=== PATIENT | male | born 1980 | race African-American/Black ===

== ENCOUNTER 2017-09-14 12:38 | Inpatient (IN) | payer SELFPAY ==
[~2017-09-14] VITALS: Ht 185.4 cm; Wt 86.2 kg
[2017-09-14] MEDS ORDERED: SODIUM CHLORIDE 0.9% 1,000 ML IV ONE (14:34)
[2017-09-14] MEDS ORDERED: LEVETIRACETAM 500MG PREMIX 100 ML IV ONE (14:45)
[2017-09-14] MEDS ORDERED: LORAZEPAM 2MG/ML CPJ IV ONE (14:45)
[2017-09-14 15:06] LABS: CLARITY URINE CLEAR (CLEAR); COLOR URINE YELLOW (YELLOW); KETONES URINE 2+ (NEGATIVE); LEUKOCYTE ESTERASE URINE NEGATIVE (NEGATIVE); NITRITE URINE NEGATIVE (NEGATIVE); OCCULT BLOOD URINE 2+ (NEGATIVE); PROTEIN URINE 2+ (NEGATIVE); SPECIFIC GRAVITY URINE 1.015 (1.005-1.030); UROBILINOGEN URINE 0.2 E.U./dL (0.2-1.0)
[2017-09-14 15:12] LABS: HEMATOCRIT. 39.8 % (42.0-52.0); HEMOGLOBIN. 13.8 g/dL (14.0-18.0); MEAN CORPUSCULAR HEMOGLOBIN 32.8 pg (28.0-32.0); MEAN CORPUSCULAR VOLUME 94.8 fL (80.0-94.0); MEAN PLATELET VOLUME 9.1 fl (7.4-10.4); PLATELET 121 x1000/uL (130-400); RED CELL DISTRIBUTION WIDTH 14.4 % (11.6-14.6)
[2017-09-14 15:19] LABS: CHLORIDE 95 mEq/L (98-107)
[2017-09-14 15:20] LABS: AMMONIA 53 uMol/L (<32)
[2017-09-14 15:24] LABS: ETHANOL BLOOD 20 mg/dL
[2017-09-14 15:28] LABS: CREATINE KINASE 261 IU/L (39-308)
[2017-09-14 15:33] LABS: CARBAMAZEPINE < 0.5 ug/mL (4-12); PHENOBARBITAL < 2.1 ug/mL (15.0-40.0); VALPROIC ACID < 3.0 ug/mL (50-100)
[2017-09-14 15:49] LABS: *AMPHETAMINES SCREEN URINE NEGATIVE (NEGATIVE); *BARBITURATES SCREEN URINE NEGATIVE (NEGATIVE); *BENZODIAZEPINES SCREEN URINE NEGATIVE (NEGATIVE); *COCAINE SCREEN URINE NEGATIVE (NEGATIVE)
[2017-09-14 15:50] LABS: CANNABINOID URINE SCREEN NEGATIVE (NEGATIVE); METHADONE URINE SCREEN NEGATIVE (NEGATIVE); OPIATES URINE SCREEN NEGATIVE (NEGATIVE); PHENCYCLIDINE URINE SCREEN NEGATIVE (NEGATIVE)
[2017-09-14 17:11] LABS: PLATELET ESTIMATE SLIGHTLY DECREASED
[2017-09-14] MEDS ORDERED: FOLIC ACID 1 MG, THIAMINE HCL 100 MG, MVI, ADULT NO.1 10 ML in DEXTROSE 5% WATER 1,000 ML IV ONE ×4 (18:00)
[2017-09-14] MEDS ORDERED: DILTIAZEM HCL 30MG TABLET PO ONE (18:00)
[2017-09-14] MEDS ORDERED: ASPIRIN 325MG EC TABLET PO ONE (18:00)
[2017-09-14] MEDS ORDERED: MVI, ADULT NO.1 10 ML, FOLIC ACID 1 MG, THIAMINE HCL 100 MG in SODIUM CHLORIDE 0.9% 1,0... IV SCH ×4 (19:15)
[2017-09-14] MEDS ORDERED: LORAZEPAM 2MG/ML CPJ IV PRN (19:15)
[2017-09-14] MEDS ORDERED: ONDANSETRON HCL 4MG/2ML VIAL IV PRN (19:15)
[2017-09-14] MEDS ORDERED: ACETAMINOPHEN 325MG TABLET PO PRN (19:15)
[2017-09-14] MEDS ORDERED: CLONIDINE 0.1MG TABLET PO PRN (19:15)
[2017-09-14] MEDS ORDERED: DIPHENHYDRAMINE 50MG/ML VIAL IV PRN (19:15)
[2017-09-14 19:43] LABS: PHOSPHORUS 3.6 mg/dL (2.5-4.9)
[2017-09-14 22:30] VITALS: BP 121/75
[2017-09-14] MEDS ORDERED: POTASSIUM CHLORIDE 20MEQ TABLET SR PO NR (22:30)
[2017-09-14] MEDS ORDERED: MAGNESIUM 2 G PREMIX 50 ML IV PRN (22:30)
[2017-09-14] MEDS ORDERED: LEVETIRACETAM 500MG PREMIX 100 ML IV SCH (23:30)
[2017-09-15] MEDS: CHLORDIAZEPOXIDE 25MG CAPSULE PO SCH ×4 (00:16→20:57)
[2017-09-15 00:24] VITALS: BP 121/75
[2017-09-15 04:00] VITALS: BP 118/88
[2017-09-15] MEDS: LEVETIRACETAM 500MG in SODIUM CHLORIDE 0.9% 100ML IV SCH ×2 (06:34→19:06)
[2017-09-15] MEDS: SODIUM CHL 0.9% + KCL 20MEQ/L 1,000 ML IV SCH ×2 (06:35→17:53)
[2017-09-15 06:49] LABS: CHLORIDE 97 mEq/L (98-107)
[2017-09-15 06:50] LABS: BASOPHILS % 1.9 % (0.0-2.0); EOSINOPHILS % 1.5 % (0.0-5.0); HEMATOCRIT. 33.2 % (42.0-52.0); HEMOGLOBIN. 11.5 g/dL (14.0-18.0); LYMPHOCYTES % 32.6 % (20.0-50.0); MEAN CORPUSCULAR VOLUME 92.3 fL (80.0-94.0); MEAN PLATELET VOLUME 9.6 fl (7.4-10.4); MONOCYTES % 2.9 % (2.0-8.0); NEUTROPHILS % 61.1 % (40.0-76.0); PLATELET 93 x1000/uL (130-400)
[2017-09-15 06:56] LABS: PHOSPHORUS 2.4 mg/dL (2.5-4.9)
[2017-09-15] MEDS ORDERED: LEVE1000 PO (07:13)
[2017-09-15 07:56] VITALS: BP 126/86
[2017-09-15 11:30] LABS: CREATINE KINASE 481 IU/L (39-308)
[2017-09-15 12:00] VITALS: BP 122/85
[2017-09-15] MEDS ORDERED: POTASSIUM PHOS,M-BASIC-D-BASIC 20 MMOL in DEXT 5% WATER 243.3333 ML IV NR (12:00)
[2017-09-15] MEDS: POTASSIUM CHLORIDE 20MEQ TABLET SR PO SCH ×3 (12:12→17:57)
[2017-09-15 14:58] LABS: HEPATITIS B SURFACE ANTIGEN NEGATIVE
[2017-09-15 15:27] LABS: HEPATITIS B CORE AB IGM NEGATIVE
[2017-09-15 17:29] LABS: HEPATITIS A AB IGM NEGATIVE (NEGATIVE)
[2017-09-15 19:36] LABS: AMMONIA 35 uMol/L (<32)
[2017-09-15 20:00] VITALS: BP 138/81
[2017-09-16] VITALS: BP 126/89
[2017-09-16 04:00] VITALS: BP 130/89
[2017-09-16] MEDS: SODIUM CHL 0.9% + KCL 20MEQ/L 1,000 ML IV SCH (05:00)
[2017-09-16] MEDS: LEVETIRACETAM 500MG in SODIUM CHLORIDE 0.9% 100ML IV SCH (05:00)
[2017-09-16] MEDS: CHLORDIAZEPOXIDE 25MG CAPSULE PO SCH (05:07)
[2017-09-16 07:30] LABS: BASOPHILS % 2.7 % (0.0-2.0); EOSINOPHILS % 1.4 % (0.0-5.0); HEMATOCRIT. 35.3 % (42.0-52.0); HEMOGLOBIN. 12.4 g/dL (14.0-18.0); LYMPHOCYTES % 17.5 % (20.0-50.0); MEAN CORPUSCULAR HEMOGLOBIN 32.8 pg (28.0-32.0); MEAN CORPUSCULAR VOLUME 93.5 fL (80.0-94.0); MEAN PLATELET VOLUME 9.9 fl (7.4-10.4); NEUTROPHILS % 74.4 % (40.0-76.0); PLATELET 109 x1000/uL (130-400); RED BLOOD CELL COUNT 3.78 mill/uL (4.7-6.1); RED CELL DISTRIBUTION WIDTH 13.9 % (11.6-14.6)
[2017-09-16 07:45] LABS: CHLORIDE 104 mEq/L (98-107)
[2017-09-16 07:52] LABS: PHOSPHORUS 1.8 mg/dL (2.5-4.9)
== END 2017-09-16 08:05 | disposition left against medical advice (07) | DRG 53 ==
LOC: ER 12:38 → 6WST 18:29 → ENRESERV 19:49 → EDBEDREQ 22:20
PROVIDERS: ADMIT Internal Medicine; ATTEND Internal Medicine
DX: G40.909 Epilepsy, unspecified, not intractable, without status epilepticus (principal); M62.82 Rhabdomyolysis; D69.6 Thrombocytopenia, unspecified; F10.239 Alcohol dependence with withdrawal, unspecified; K75.9 Inflammatory liver disease, unspecified; E87.6 Hypokalemia; I48.0 Paroxysmal atrial fibrillation; K21.9 Gastro-esophageal reflux disease without esophagitis; Z53.21 Procedure and treatment not carried out due to patient leaving prior to being seen by health care provider; Z79.899 Other long term (current) drug therapy
CPT/HCPCS: 36415; 76700; 80053; 80076; 80156; 80165; 80184; 80185; 80305; 81003; 82140; 82550; 83690; 83735; 84100; 84443; 85025; 86705; 86709; 86803; 87340; 93005; 96361; 96374; 96375; 99285; G0482; J1953; J2060; J3411; J3480; J3490; J7030; J7050; J7060; J7070